=== PATIENT | male | born 1965 | race Caucasian/White ===

== ENCOUNTER 2016-11-25 12:35 | Emergency (ER) | payer OTHER ==
[~2016-11-25] VITALS: Ht 182.9 cm; Wt 81.6 kg
[2016-11-25 12:41] VITALS: BP 156/79
[2016-11-25] MEDS ORDERED: PREDNISONE20 M1 PO (13:00)
--- NOTE | 2016-11-25 13:03 | ED HAND/WRIST INJURY COMPLAINT ---
History of Present Illness General Chief Complaint: Laceration Procedure Stated Complaint: LAC TO LEFT WRIST WITH A CHOP SAW Source: patient Exam Limitations: no limitations Vital Signs & Intake/Output Vital Signs & Intake/Output Vital Signs Date Time Temp Pulse Resp B/P B/P Pulse O2 O2 Flow FiO2 Mean Ox Delivery Rate 11/25 1241 98.0 89 20 156/79 98 Room Air Allergies Coded Allergies: NO KNOWN ALLERGIES (02/24/12) Reconcile Medications Prednisone 20 MG TABLET 1 TAB PO DAILY STEROID (Reported) Triage Note: PT TO ED C/O LAC TO LEFT WRIST FROM CHOP SAW. 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 BLEEDING CONTROLLED, DRESSING APPLIED IN TRIAGE. Triage Nurses Notes Reviewed? yes Occurred: just prior to arrival Duration: hour(s):, constant, continues in ED Timing: single episode today Injury Environment: home Pain/Injury Location: Left: Wrist. Method of Injury: laceration No Modifying Factors: none HPI: 51-year-old male comes into emergency room for further evaluation of laceration to dorsal aspect of left wrist. Patient cut it with a chop saw by accident while working at home. Tetanus shot up-to-date. Making pain to the left hand. Denies any numbness or tingling. Denies any associated symptoms. (KEVIN BROWN) Past History Travel History Traveled to [place] past 21 day No Medical History Any Pertinent Medical History? see below for history Respiratory: bronchitis Tetanus Vaccine: Surgical History Surgical History: non-contributory Psychosocial History What is your primary language Georgian Tobacco Use: Current Daily Use Daily Tobacco Use Amount/Type: => 5 Cigarettes daily ETOH Use: occasional use Illicit Drug Use: denies illicit drug use Family History Hx Contributory? No (KEVIN BROWN) Review of Systems Review of Systems Constitutional: Reports: no symptoms. EENTM: Reports: no symptoms. Respiratory: Reports: no symptoms. Cardiovascular: Reports: no symptoms. GI: Reports: no symptoms. Genitourinary: Reports: no symptoms. Musculoskeletal: Reports: see HPI. Skin: Reports: see HPI. Neurological/Psychological: Reports: no symptoms. Hematologic/Endocrine: Reports: no symptoms. Immunologic/Allergic: Reports: no symptoms. All Other Systems: Reviewed and Negative (KEVIN BROWN) Physical Exam Physical Exam General Appearance: well developed/nourished, mild distress Head: atraumatic Eyes: Bilateral: normal appearance. Ears, Nose, Throat: normal ENT inspection, hearing grossly normal Neck: normal inspection Cardiovascular/Respiratory: no respiratory distress Back: normal inspection Wrist Left: 1.5 inch laceration Hand Left: normal inspection Hand Right: normal inspection Neurologic/Tendon: normal sensation, normal motor functions, normal tendon functions, responds to pain, no evidence tendon injury, no pulse deficit Skin: intact, normal color, warm/dry Lymphatic: no anterior cervical brice (ALEKSANDR LANTIGUA,KEVIN) Progress Differential Diagnosis: cellulitis, contusion, dislocation, fracture, paronychia , septic arthritis, sprain, tenosynovitis, soft tissue foreign body Plan of Care: Orders Procedure Date/time Status XRY-WRIST COMPLETE-LEFT 11/25 1302 Active Departure Departure Disposition: HOME OR SELF CARE Condition: Stable Clinical Impression Primary Impression: Laceration of left wrist Referrals: PATIENT HAS NO PRIMARY CARE DR (PCP/Family) Additional Instructions: Return in 10 days for suture removal. Keep covered with bacitracin dry dressing. Watch for signs of infection such as redness or discharge fever chills. Please go over all results of today's visit with your primary care doctor. Contact your primary care doctor to let them know you were here in the emergency room. There may be nonspecific findings which may not be related to your visit today here in the emergency room but may require further evaluation and chronic monitoring by your primary care doctor. If you had a laceration today the chance of foreign body always remains. You should follow-up with your primary care doctor for recheck in 3-5 days for a wound check. If you had an x-ray done there is a chance that a fracture could have been missed on initial read and you should follow-up with your primary care doctor for repeat x-rays if symptoms persist. If your blood pressure was elevated here in the emergency room please have rechecked by her primary care doctor within the next 48 hours by your primary care doctor. If you were prescribed a narcotic here in the emergency room or any type of controlled substances you're not allowed to drive while taking this medication or operate any type of heavy machinery. Narcotics can make you feel lightheaded dizziness nausea and can cause constipation. You may need to belt picker a stool softener. Thank you for choosing [facility] emergency room. Please return to the emergency room immediately if you have any other concerns worsening of symptoms. Departure Forms: Customer Survey General Discharge Information (KEVIN BORWN) PA/INVENTORY TAKER Co-Sign Statement Statement: ED Attending supervision documentation- I saw and evaluated the patient. I have also reviewed all the pertinent lab results and diagnostic results. I agree with the findings and the plan of care as documented in the PA's/INVENTORY TAKER's documentation. x I have reviewed the ED Record and agree with the PA's/INVENTORY TAKER's documentation. [] Additions or exceptions (if any) to the PAs/INVENTORY TAKER's note and plan are summarized below: [] (GABRIEL LEVY,YAAKOV) Procedures Laceration/Wound Repair Progress: 1.5 cm laceration to the left dorsal aspect of wrist, 2% lidocaine with epi, 4 mL injected, irrigated with copious amounts of saline and peroxide and Betadine, 4. 0 nylon, 5 sutures placed, one of the stitches was a horizontal mattress stitch, sterile technique, patient tolerated procedure well, bacitracin and dry sterile dressing placed, (KEVIN BROWN)
--- NOTE | 2016-11-25 13:43 | RADIOLOGY REPORT ---
EXAMINATION: WRIST 4 VIEWS, LEFT CLINICAL INFORMATION: Left wrist pain. Laceration. COMPARISON: None. TECHNIQUE: AP, lateral, oblique, scaphoid views of the left wrist are provided. FINDINGS: There are no fractures or dislocations. There is no displacement of the pronator fat pad. The proximal carpal row is intact. IMPRESSION: Unremarkable left wrist radiographs.
== END 2016-11-25 14:01 ==
LOC: ERH 12:35
DX: S61.512A Laceration without foreign body of left wrist, initial encounter (principal); W31.2XXA Contact with powered woodworking and forming machines, initial encounter; Y93.9 Activity, unspecified; Y92.009 Unspecified place in unspecified non-institutional (private) residence as the place of occurrence of the external cause
CPT/HCPCS: 73110-LT